=== PATIENT | male | born 1975 | race Caucasian/White ===

== ENCOUNTER 2022-05-26 23:15 | Emergency (ER) | payer MEDICAID ==
[~2022-05-26] VITALS: Ht 165.1 cm; Wt 98.9 kg
[2022-05-26 23:37] VITALS: BP 129/70
--- NOTE | 2022-05-26 23:55 | NUR ---
Called [facility] [place] [employer], They will send PD or follow up case.
--- NOTE | 2022-05-27 03:33 | NUR ---
Called- no show in lobby or outside.
--- NOTE | 2022-05-27 03:38 | NUR ---
PATIENT ELOPED FROM FACILITY. DISCHARGE INSTRUCTIONS NOT GIVEN TO PATIENT. DR. Reardon NOTIFIED.
== END 2022-05-27 03:38 | disposition left against medical advice (07) ==
LOC: MED 23:15
DX: S00.93XA Contusion of unspecified part of head, initial encounter (principal); R03.0 Elevated blood-pressure reading, without diagnosis of hypertension; Y09 Assault by unspecified means; Y93.89 Activity, other specified; Y92.89 Other specified places as the place of occurrence of the external cause; Y99.8 Other external cause status
CPT/HCPCS: 70450; 70486; 99284